=== PATIENT | female | born 2000 | race Caucasian/White ===

== ENCOUNTER 2020-05-20 21:30 | Observation (INO) | payer OTHER, SELFPAY ==
[2020-05-20 21:38] VITALS: BP 147/80; PULSE 103; RESP 20; O2SAT 100
--- NOTE | 2020-05-20 21:58 | ECG_ITS ---
Measurements Intervals [place] Rate: 78 P: 76 [place]: 114 QRS: 69 QRSD: 85 T: 29 QT: 343 QTc: 392 Interpretive Statements SINUS RHYTHM WITH SHORT [place] INTERVAL INCOMPLETE RIGHT BUNDLE BRANCH BLOCK BORDERLINE ST ABNORMALITY- INFERIOR LEADS BASELINE WANDER- V5-V6 BORDERLINE ECG Electronically Signed On 05-21-2020 7:23:29 CDT by Walker Toscano D.O.
[2020-05-20 22:14] LABS: Basophils Percent Auto 0.4 % (0.2-1.2); Eosinophils Absolute Auto 0.1 K/mm3 (0-0.3); Eosinophils Percent Auto 0.9 % (0-4.4); Hematocrit 38.4 % (37.0-47.0); Hemoglobin 13.4 g/dL (12.0-15.0); Immature Granulocyte Absolute 0.01 K/mm3 (0.00-0.031); Immature Granulocyte Percent A 0.1 % (0-0.5); Lymphocytes Percent Auto 41.6 % (18.3-44.2); Mean Corpuscular HGB Conc 34.9 g/dl (32-36); Mean Corpuscular Hemoglobin 30.7 pg (26-34); Mean Corpuscular Volume 88.1 fl (80-100); Mean Platelet Volume 10.2 fl (7.4-10.4); Monocytes Absolute Auto 0.4 K/mm3 (0.1-0.6); Monocytes Percent Auto 6.4 % (2.6-8.5); Neutrophils Absolute Auto 3.4 K/mm3 (1.3-6.7); Neutrophils Percent Auto 50.6 % (45.5-73.1); Platelet Count Result 283 k/mm3 (150-375); Red Blood Count 4.36 M/mm3 (4.2-5.4); Red Cell Distribution Width 13.7 % (11.5-14.5); White Blood Count 6.7 K/mm3 (4.5-10.0)
[2020-05-20 22:19] LABS: Add Urine Microscopic? NO; Appearance Urine Clear (Clear); Bilirubin Urine Negative (Negative); Blood Urine Negative (Negative); Color Urine Straw (Yellow); Glucose Urine UA Negative (Negative); Ketones Urine Negative (Negative); Leukocyte Esterase Ur Negative LEU/UL (Negative); Nitrate Urine Negative (Negative); Protein Urine Negative (Negative); Specific Grav Ur 1.008 (1.001-1.035); Urobilinogen Urine Negative mg/dL (<2.0)
--- NOTE | 2020-05-20 22:22 | PC.NURSE ---
2220 spoke with poison control case opened Hydroxyzine will peak at 1-3 hours and half life is at 20 hrs pt and get benzos for tremors or agitation we are to watch for DAY CARE DIRECTOR depression and tremors and rhabdo they will call back to check on pt in 2 hrs
[2020-05-20 22:26] LABS: Alanine Aminotransferase 25 U/L (4-35); Albumin Level 4.6 g/dL (3.5-5.1); Alkaline Phosphatase 42 U/L (38-126); Aspartate Amino Transferase 38 U/L (14-36); Bilirubin,Total 0.7 mg/dL (0.2-1.3); Blood Urea Nitrogen 6 mg/dL (7-17); Calcium 9.2 mg/dL (8.4-10.2); Carbon Dioxide 25 mmol/L (22-30); Chloride 108 mmol/L (98-107); Estimated CRCL calculation 80 ml/min; Estimated Glomerular Filt Rate > 60; Glucose 122 mg/dL (65-105); Potassium 3.4 mmol/L (3.4-5.0); Sodium 141 mmol/L (137-145)
[2020-05-20 22:27] LABS: Acetaminophen < 10 ug/mL (10-30); Ethanol < 10 mg/dL (<10); Salicylate < 1.0 mg/dL (2-20)
[2020-05-20] MEDS: SODIUM CHLORIDE 0.9% IV 1,000 ML 999 ML IV CONT (22:31)
[2020-05-20 22:33] LABS: Amphetamine Screen Urine Negative (Negative); Barbiturate Screen Urine Negative (Negative); Benzodiazepines Screen Urine Negative (Negative); Cannabinoid Screen Urine Negative (Negative); Cocaine Screen Urine Negative (Negative); Methadone Screen Urine Negative (Negative); Opiate Screen Urine Negative (Negative); Phencyclidine Screen Urine Negative (Negative)
[2020-05-20 22:46] LABS: Creatine Kinase 62 U/L (30-135)
[2020-05-20 22:48] LABS: Lactic Acid Reflex 1.6 mmol/L (0.7-2.1)
--- NOTE | 2020-05-20 23:03 | ED.PSYCH ---
HPI - Psych General Chief Complaint: Psychiatric Symptoms Stated Complaint: OD/ SI Time Seen by Provider: 05/20/20 21:42 History of Present Illness HPI Narrative: Patient is a 20-year-old female who presents ER with intentional overdose. Patient reports she took 30 tablets of hydroxyzine at 5:30 PM. Her intent was to get high not to kill herself. She reports that she is having mild epigastric discomfort but otherwise she is not particularly cooperative with evaluation and history taking. Patient was admitted to [facility] 2 weeks ago after an intentional overdose on fentanyl. She then stayed 2-1/2 days in a psychiatric facility before being discharged. Father present reports patient has mental health issues that go back to when she was a young woman and was anorexic. That then led to worsening of her eating disorder, then drug abuse, and now recent overdoses. Patient has been and drug rehab previously, she has been on Suboxone previously, as she has had mental health stays previously all that were unsuccessful. Father reports patient recently broke up with her boyfriend and is no longer living with him. Additionally she lost her job in the last 5 days. Related Data Home Medications Medication Instructions Recorded Confirmed bupropion HCl 150 mg PO DAILY 05/20/20 05/20/20 hydroxyzine HCl 50 mg PO DAILY 05/20/20 05/20/20 norgestrel-ethinyl estradiol 1 tablet PO DAILY 05/20/20 05/20/20 [Low-Ogestrel (28)] Allergies Allergy/AdvReac Type Severity Reaction Status Date / Time sulfamethoxazole Allergy Mild Hives / Verified 05/20/20 22:02 Red Face trimethoprim Allergy Mild Hives / Verified 05/20/20 22:02 Red Face Review of Systems Review of Systems: All systems reviewed & are unremarkable except as noted in HPI and below ROS unobtainable: Yes unobtainable due to medical condition (Intermittent confusion potential related to toxic ingestion) PMFSH Past Medical History Medical History (Updated 05/21/20 @ 01:34 by Shayan Edwards MD) Anorexia Depression Substance abuse Surgical History Surgical History (Updated 05/21/20 @ 01:29 by Shayan Edwards MD) No pertinent past surgical history Family History Family History (Updated 05/21/20 @ 01:23 by Verónica Ibanez RN) Father Unknown family medical history Mother Unknown family medical history Social History Social History (Updated 05/20/20 @ 23:33 by Shayan Edwards MD) Smoking status: Current every day smoker Tobacco type: e-cigarettes/vaping Additional smoking assessment comments: states vapes everyday but unsure of amount Alcohol intake: current Drinks per week: 0 Substance use: former Substance use type: opiates and prescription drug Gender identity (if verbalized by the patient): Female Spiritual care concerns: No Exam Narrative: Exam Narrative: GENERAL: Well-appearing, thin, and in no acute distress. HEAD: Normocephalic, atraumatic. EYES: PERRLA and EOMI. ENT: Mucous membranes moist. CHEST: Clear to auscultation. No respiratory distress. HEART: Tachycardic regular. Normal peripheral pulses. ABDOMEN: Soft, mild diffuse discomfort without point tenderness or guarding, nondistended. EXTREMITIES: Normal range of motion. No edema. SKIN: Warm, dry, no rash. Bandage to left flank for patient had fallen asleep on her curling iron 2 weeks ago. NEURO: Awake and alert, oriented to self and place, not particularly cooperative. Course Course Emergency Course: Admit to the hospitalist with ICU consulting due to toxic ingestion. Patient will then need placement in a psychiatric facility. Patient's father present informed of results and treatment plan. Vital Signs Vital signs: Vital Signs Pulse Rate 103 H 05/20/20 21:38 Respiratory Rate 20 05/20/20 21:38 Blood Pressure 147/80 H 05/20/20 21:38 Pulse Oximetry 100 05/20/20 21:38 Temperature 97.5 F L 05/21/20 01:25 Pulse Rate 85 05/21/20 01:25 Re
[2020-05-20 23:13] VITALS: BP 95/61; PULSE 76; RESP 22; O2SAT 100
[2020-05-20 23:43] LABS: Free T4 Free Thyroxine Reflex 0.76 ng/dL (0.78-2.19)
[2020-05-21] VITALS (10 sets, daily range): BP systolic 101–121; BP diastolic 55–76; PULSE 65–90; RESP 14–21; TEMP 36.4–37.2; O2SAT 98–100; BMI 16.2; BMI 16.7
[2020-05-21] MEDS: LACTATED RINGERS 1,000 ML 125 ML IV CONT (01:00)
--- NOTE | 2020-05-21 01:28 | PC.NURSE ---
This patient, Barbara Vogt, was admitted to Intensive Care Unit-6. Patient/family oriented to hospital policies and general routines including ID bracelet, bed and alarms, visiting hours, pain management, procedures, bathroom and other care routines, personal items, smoking policy, room service/diet, and visiting hours. Valuables list has been completed. Information on how to activate the Rapid Response Team has been discussed. Patient/Family are encouraged to report perceived risks to care and to ask questions if they do not understand what they are told or what they should do.
--- NOTE | 2020-05-21 01:52 | ECG_ITS ---
Measurements Intervals [place] Rate: 79 P: 69 [place]: 126 QRS: 65 QRSD: 80 T: 52 QT: 325 QTc: 374 Interpretive Statements SINUS RHYTHM INCOMPLETE RIGHT BUNDLE BRANCH BLOCK BORDERLINE ECG Electronically Signed On 05-21-2020 11:04:52 CDT by Walker Toscano D.O.
--- NOTE | 2020-05-21 01:52 | PM.IMHP ---
H&P: HPI History of Present Illness Chief complaint: overdose, suicidal ideation Narrative: This is a 20 year old female with known history of depression and previous suicidal attempt who presented to the hospital tonight with an intentional overdose. She apparently consumed 30 tablets of hydrozyzine 50 mg around 5:30 pm. She reports nausea and vomiting as well as mild epigastric discomfort. She denies suicidal ideation tonight despite her actions. The patient admits that she abuses fentanyl and was last admitted to [facility] for intentional overdose of fentanyl two weeks ago. She is known to have recently broken up with her significant other and also lost her job this past week. When I ask the patient to elaborate further she simply states, My brain is broken and refuses to say anything else. Currently the patient denies any other symptoms. Poison control and Taxi Truck Driver have been consulted for her intentional overdose. No other complaints. Review of Systems Review of Systems: All systems reviewed & are unremarkable except as noted in HPI and below PMFSH Past Medical History Medical History Anorexia Depression Substance abuse Surgical History Surgical History No pertinent past surgical history Family History Family History Father Unknown family medical history Mother Unknown family medical history Social History Social History Smoking status: Current every day smoker Tobacco type: e-cigarettes/vaping Additional smoking assessment comments: states vapes everyday but unsure of amount Alcohol intake: current Drinks per week: 0 Substance use: former Substance use type: opiates and prescription drug Gender identity (if verbalized by the patient): Female Spiritual care concerns: No Meds Home Medications and Allergies Home Medications Medication Instructions Recorded Confirmed Type bupropion HCl 150 mg PO DAILY 05/20/20 05/20/20 History hydroxyzine HCl 50 mg PO DAILY 05/20/20 05/20/20 History norgestrel-ethinyl estradiol 1 tablet PO DAILY 05/20/20 05/20/20 History [Low-Ogestrel (28)] Allergies Allergy/AdvReac Type Severity Reaction Status Date / Time sulfamethoxazole Allergy Mild Hives / Verified 05/20/20 22:02 Red Face trimethoprim Allergy Mild Hives / Verified 05/20/20 22:02 Red Face Vital Signs Vital Signs - 24 hr 05/20/20 21:38 05/20/20 23:13 05/21/20 00:02 Temperature Pulse Rate 103 H 76 80 Respiratory Rate 20 22 H 19 Blood Pressure 147/80 H 95/61 L 101/59 L Pulse Oximetry 100 100 100 05/21/20 00:52 05/21/20 01:25 Temperature 36.8 C 36.4 C L Pulse Rate 90 85 Respiratory Rate 18 16 Blood Pressure 121/73 111/73 Pulse Oximetry 100 100 Exam Const: General: cooperative, no acute distress, alert and awake Nutritional Appearance: thin and underweight Orientation/consciousness: patient oriented x3 HENMT: Head: normal to inspection General nose exam: Normal external nose present Face and sinus: normal facial exam Mouth: Yes Normal oral and palatal mucosa present and Yes oropharynx normal Eyes: Pupils: Equal, round and reactive pupils present EOM: EOMs intact bilaterally Neck: Neck: supple and no JVD Thyroid: thyroid normal Lymphatic: lymphadenopathy not noted Resp: Effort & Inspection: normal respiratory effort Auscultation: clear to auscultation bilaterally Cardio: Rate: regular rate Rhythm: regular rhythm Heart sounds: no murmurs GI: Inspection: normal to inspection Auscultation: normal bowel sounds Skin: General skin exam: normal color and no rashes or lesions noted Neuro: General: patient oriented x3 Cranial nerves: Yes CN's II-XII intact bilaterally and Yes Equal, round and reactive pupils present Speech:
[2020-05-21 04:40] LABS: Basophils Percent Auto 0.5 % (0.2-1.2); Eosinophils Percent Auto 0.5 % (0-4.4); Hematocrit 32.7 % (37.0-47.0); Hemoglobin 10.9 g/dL (12.0-15.0); Immature Granulocyte Absolute 0.01 K/mm3 (0.00-0.031); Immature Granulocyte Percent A 0.2 % (0-0.5); Lymphocytes Percent Auto 40.2 % (18.3-44.2); Mean Corpuscular HGB Conc 33.3 g/dl (32-36); Mean Corpuscular Hemoglobin 30.1 pg (26-34); Mean Corpuscular Volume 90.3 fl (80-100); Mean Platelet Volume 9.8 fl (7.4-10.4); Monocytes Absolute Auto 0.4 K/mm3 (0.1-0.6); Monocytes Percent Auto 5.6 % (2.6-8.5); Neutrophils Absolute Auto 3.4 K/mm3 (1.3-6.7); Platelet Count Result 238 k/mm3 (150-375); Red Blood Count 3.62 M/mm3 (4.2-5.4); Red Cell Distribution Width 13.7 % (11.5-14.5); White Blood Count 6.5 K/mm3 (4.5-10.0)
[2020-05-21 04:52] LABS: Blood Urea Nitrogen 5 mg/dL (7-17); Calcium 8.8 mg/dL (8.4-10.2); Carbon Dioxide 21 mmol/L (22-30); Chloride 111 mmol/L (98-107); Estimated CRCL calculation 78 ml/min; Estimated Glomerular Filt Rate > 60; Glucose 150 mg/dL (65-105); Potassium 3.4 mmol/L (3.4-5.0); Sodium 141 mmol/L (137-145)
--- NOTE | 2020-05-21 08:15 | PC.NURSE ---
0815-Poison control called and requested current vital signs and an update on her condition. Update given and poison control closed her case out.
[2020-05-21] MEDS: SODIUM CHLORIDE 0.45% 1,000 ML 50 ML IV CONT (09:31)
--- NOTE | 2020-05-21 09:33 | WPDCNINT ---
Assessment and Plan Assessment and plan (1) Intentional overdose of drug in tablet form: Code(s): T50.902A - Poisoning by unspecified drugs, medicaments and biological substances, intentional self-harm, initial encounter Status: Acute Assessment and Plan: Patient now clinically improved she is alert awake oriented x3 Vital signs stable On IV fluids which I will decrease the rate Poison control consulted in the ER EKG was done in ED and as per ED note it was normal. I am unable to find the image in EMR (2) Depression: Qualifiers: Depression Type: unspecified Qualified Code(s): F32.9 - Major depressive disorder, single episode, unspecified Code(s): F32.9 - Major depressive disorder, single episode, unspecified Status: Chronic Assessment and Plan: Patient will be seen by crisis intervention Patient currently has one-to-one sitter Resume Wellbutrin (3) Substance abuse: Code(s): F19.10 - Other psychoactive substance abuse, uncomplicated Status: Chronic Assessment and Plan: Encouraged to quit drugs Will check for hepatitis and HIV since history of IV drug use (4) Hypothyroidism: Code(s): E03.9 - Hypothyroidism, unspecified Status: Acute Assessment and Plan: High TSH and low T4 Will check T3 free level SCDs for DVT prophylaxis Transfer to step-down level but continue one-to-one monitoring 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 She stated that she was trying to get high and took 30 pills of hydroxyzine 50 mg. She denied any suicidal ideation or attempts at that time. Patient was admitted to ICU for monitoring and a one-to-one sitter was placed. This morning patient feels better she is alert awake oriented and continues to claim but she was not trying to commit suicide or hurt herself was only trying to get high. He denies any complaints at this time feels better. She told me she has tried to commit suicide in the past and has low mood but has not been thinking about hurting herself or anyone else likely. She admits to using drugs she snorts fentanyl 3 to 4 times a day, she vapes but has smoked in the past, occasional alcohol use, occasional marijuana use, she has used cocaine heroin and methamphetamine in the past but not recently. She also has used Suboxone. She denies any recent IV drug use but has done IV meth and last year. On review of system apart from feeling depressed she claims of feeling cold all the time denies any hair loss weight gain or weight loss. No fever chills or shakes no change in sensation of smell or taste no sick contact with anyone with COVID-19 No chest pain shortness of breath or cough No dysuria hematuria Abdominal pain nausea vomiting diarrhea Review of Systems Review of Systems: All systems reviewed & are unremarkable except as noted in HPI and below (HPI) PMFSH Past Medical History Medical History Anorexia Depression Substance abuse Surgical History Surgical History No pertinent past surgical history Family History Family History Father Unknown family medical history Mother Unknown family medical history Social History Social History Smoking status: Current every day smoker Tobacco type: e-cigarettes/vaping Additional smoking assessment comments: states vapes everyday but unsure of amount Alcohol intake: current Drinks per week: 0 Substance use: former Substance use type: opiates and prescription drug Gender identity (if verbalized by the patient): Female Spiritua
[2020-05-21] MEDS: buPROPion HCL XL (24 HR) 150 MG TABCR PO (10:40)
[2020-05-21 15:48] LABS: Hepatitis B Surface Antigen Negative (Negative)
[2020-05-21 15:57] LABS: HIV 1/2 Ab P24 Ag Result Negative (Negative)
[2020-05-21 16:06] LABS: Hepatitis B Surface Anti Res Positive; Hepatitis C Virus Antibody Negative (Negative)
--- NOTE | 2020-05-21 17:23 | PM.IMPN ---
Progress Note: A&P Assessment and Plan (1) Intentional overdose of drug in tablet form: Code(s): T50.902A - Poisoning by unspecified drugs, medicaments and biological substances, intentional self-harm, initial encounter Status: Acute Assessment and Plan: Admit to ICU, telemetry, Monitor EKG and QT interval. Continue symptomatic therapy for anticholinergic effects from hydrozyzine. Continue iv fluids. (2) Suicidal ideation: Code(s): R45.851 - Suicidal ideations Status: Acute Assessment and Plan: Crisis intervention tomorrow am. The patient will need to be discharged to inpatient psychiatry when medically stable. (3) Depression: Qualifiers: Depression Type: unspecified Qualified Code(s): F32.9 - Major depressive disorder, single episode, unspecified Code(s): F32.9 - Major depressive disorder, single episode, unspecified Status: Chronic Assessment and Plan: Resume antidepressants when appropriate. will benefit from counselling (4) Substance abuse: Code(s): F19.10 - Other psychoactive substance abuse, uncomplicated Status: Chronic Assessment and Plan: The patient was counseled on substance abuse. Subjective Date/time seen: 05/21/20 17:23 Interval history: 20 year old female with known history of depression and previous suicidal attempt who presented to the [facility] with an intentional overdose. She apparently consumed 30 tablets of hydrozyzine 50 mg around 5:30 pm. Pt complains of abdominal cramps otherwise is doing ok. pt to see crisis team tomorrow once medically cleared. Pt previously overdosed on fentanyl two weeks ago. Review of Systems Review of Systems: All systems reviewed & are unremarkable except as noted in HPI and below Exam Const: General: cooperative, no acute distress, alert and awake Nutritional Appearance: thin and underweight Orientation/consciousness: patient oriented x3 Resp: Effort & Inspection: normal respiratory effort Auscultation: clear to auscultation bilaterally Cardio: Rate: regular rate Rhythm: regular rhythm Heart sounds: no murmurs GI: Inspection: normal to inspection Auscultation: normal bowel sounds Neuro: General: patient oriented x3 Cranial nerves: Yes CN's II-XII intact bilaterally and Yes Equal, round and reactive pupils present Speech: normal speech Motor exam (neuro): 5/5 motor strength present throughout Sensory Exam: normal sensation Extrem: General: normal to inspection and no edema Psych: Affect: Labile affect present and Sad affect present Objective Data Vital Signs Vital Signs: Vital Signs - 24 hr 05/20/20 21:38 05/20/20 23:13 05/21/20 00:02 Temperature Pulse Rate 103 H 76 80 Respiratory Rate 20 22 H 19 Blood Pressure 147/80 H 95/61 L 101/59 L Pulse Oximetry 100 100 100 05/21/20 00:52 05/21/20 01:25 05/21/20 02:00 Temperature 36.8 C 36.4 C L Pulse Rate 90 85 79 Respiratory Rate 18 16 16 Blood Pressure 121/73 111/73 117/70 Pulse Oximetry 100 100 100 05/21/20 04:00 05/21/20 06:00 05/21/20 08:00 Temperature 36.4 C L 37.2 C Pulse Rate 78 72 75 Respiratory Rate 17 14 14 Blood Pressure 112/66 105/56 L 103/55 L Pulse Oximetry 100 100 98 05/21/20 10:00 Temperature Pulse Rate 88 Respiratory Rate 21 H Blood Pressure 115/68 Pulse Oximetry 100 Intake/Output Intake/Output: Intake & Output 05/18/20 05/19/20 05/20/20 05/21/20 23:59 23:59 23:59 23:59 Intake Total 1000 1890 Output Total 20 2100 Balance 980 -210 Meds/Results Medications: Active Medications Generic Name Dose Route Start Last Admin Trade Name Freq PRN Reason Stop Dose Admin Acetaminophen 650 mg 05/20/20 23:58 Tylenol Tablet PO Q4H PRN Mild Pain (1-3) or Fever Bupropion HCl 150 mg 05/21/20 09:00 05/21/20 10:40 Wellbutrin Xl (24 Hr) PO 150 mg QAM BRITTNEY Administration Sodium Chloride 1,000 mls @ 50 mls/hr 05/21/20 08:2
[2020-05-22] VITALS: BP 117/70; PULSE 60; RESP 16; TEMP 36.6; O2SAT 100
[2020-05-22] MEDS: SODIUM CHLORIDE 0.45% 1,000 ML 50 ML IV CONT (05:37)
[2020-05-22] MEDS: buPROPion HCL XL (24 HR) 150 MG TABCR PO (07:40)
[2020-05-22 08:00] VITALS: BP 117/73; PULSE 55; RESP 16; TEMP 37; O2SAT 99
--- NOTE | 2020-05-22 14:41 | PC.NURSE ---
Patient to be going to [facility] in [place]. Patient's family to drive patient to rehab. farmworker poultry Karis made arrangement. Brooke with care coordination assisting Karis with discharge needs.
[2020-05-22 16:00] VITALS: BP 114/67; PULSE 64; RESP 16; TEMP 36.6; O2SAT 100
--- NOTE | 2020-05-22 17:03 | PM.DS ---
DS: Admitting Diagnosis Admitting Diagnosis Admitting Diagnosis: Poisoning by unspecified drugs, medicaments and biological substances, intentional self-harm, initial encounter DS: Discharge Diagnosis Discharge Diagnosis (1) Intentional overdose of drug in tablet form: Code(s): T50.902A - Poisoning by unspecified drugs, medicaments and biological substances, intentional self-harm, initial encounter Status: Acute Assessment and Plan: Monitored on telemetry in icu. IV hydration. Previous OD on fentanyl. Now took hydroxyzine this time. (2) Suicidal ideation: Code(s): R45.851 - Suicidal ideations Status: Acute Assessment and Plan: Crisis intervention tomorrow am. The patient will need to be discharged to Detox facility in [place] for substance abuse. (3) Depression: Qualifiers: Depression Type: unspecified Qualified Code(s): F32.9 - Major depressive disorder, single episode, unspecified Code(s): F32.9 - Major depressive disorder, single episode, unspecified Status: Chronic Assessment and Plan: Resume antidepressants when appropriate. will benefit from counselling (4) Substance abuse: Code(s): F19.10 - Other psychoactive substance abuse, uncomplicated Status: Chronic Assessment and Plan: The patient was counseled on substance abuse. Pt uses fentanyl. DS: Summary Time Spent with Patient Time attestation: Total time spent providing and/or coordinating discharge services:40 minutes on day of dischrage Exam Const: General: cooperative, no acute distress, alert and awake Nutritional Appearance: thin and underweight Orientation/consciousness: patient oriented x3 Neuro: General: patient oriented x3 Cranial nerves: Yes CN's II-XII intact bilaterally and Yes Equal, round and reactive pupils present Speech: normal speech Motor exam (neuro): 5/5 motor strength present throughout Sensory Exam: normal sensation Extrem: General: normal to inspection and no edema Psych: Affect: Labile affect present Discharge Plan Discharge Attending physician on discharge: Indigo Cuenca Consulting providers: Kendrick Caal Discharging Clinician: Indigo Cuenca Anticipated Discharge Date/Time: 05/22/20 17:02 Patient Disposition: Other Activity: as tolerated Diet: regular Discharge Instructions: DISCHARGED TO [place] [facility] Patient Instructions: Antibiotic Form, How to Stop Smoking (DC), Depression (DC), Help Prevent Suicide (DC) Stand Alone Forms: General Discharge Information Follow-up/Referrals: Joanne Gonazlez MD [Primary Care Provider] - Discharge Medications: Continued Low-Ogestrel (28) 0.3-30 mg-mcg tablet 1 tablet PO DAILY RF: 0 bupropion HCl 150 mg tablet extended release 24 hr 150 mg PO DAILY Qty: 30 RF: 0 Discontinued hydroxyzine HCl 50 mg tablet 50 mg PO DAILY RF: 0 Date of admission: 05/20/20 23:58 Primary Care Provider: Joanne Gonzalez Admitting Provider: Lazarus Forman Attending physician on admission: Lazarus Forman Condition: Stable
--- NOTE | 2020-05-22 17:23 | PC.NURSE ---
Went over discharge papers, iv removed. Parents on way to get patient. Patient sitter remains with patient. Patient getting dressed for discharge.
[2020-05-24 21:36] LABS: Triiodothyronine T3 Free 2.4 pg/mL (2.3-4.2)
[2020-05-25 16:53] LABS: Hepatitis C Viral RNA PCR <15 IU/mL
== END 2020-05-22 17:50 | disposition other institution (70) ==
LOC: ANHED 23:48 → ANHICU 05-21 01:34
PROVIDERS: Internal Medicine; Admitting Provider Family Medicine; Emergency Provider Emergency Medicine; PCP Pediatrics; Visit Provider Family Medicine
DX: T43.592A Poisoning by other antipsychotics and neuroleptics, intentional self-harm, initial encounter (principal); R45.851 Suicidal ideations; F32.9 Major depressive disorder, single episode, unspecified; F19.10 Other psychoactive substance abuse, uncomplicated; F17.290 Nicotine dependence, other tobacco product, uncomplicated; E03.9 Hypothyroidism, unspecified; Z91.5 Personal history of self-harm
CPT/HCPCS: 36415; 51701; 80048; 80053; 80307; 81003; 81025; 82550; 83605; 83735; 84439; 84443; 84481; 85025; 86703; 86706; 86803; 87340; 87522; 93005; 96360; 96361; 99285; A9270; G0378; G0432; J7030; J7120